=== PATIENT | male | born 1935 | race Caucasian/White ===

== ENCOUNTER 2025-02-11 09:28 | Inpatient (IN) ==
[2025-02-11] MEDS: MoRPHine SULFATE 4 MG/ML 1 ML CARP\\VIAL IV STA (10:08)
[2025-02-11] MEDS: ONDANSETRON INJ 2 MG/ML 2 ML VIAL IV STA (10:08)
--- NOTE | 2025-02-11 10:13 | Emergency Department Note ---
ED Provider Note History of Present Illness Chief Complaint: Knee Injury/Pain Stated Complaint: IN PAIN WITH HIS KNEES Time Seen by Provider: 02/11/25 09:34 89-year-old male who presents to the emergency department with family (who also provides history) with complaint of severe jumping nerve pain in both of his shoulders and knees. The patient and family report that this has been ongoing for quite some time. When asked what workup has been done to this point, they were unable to answer a question. They reported they were seen at a pain clinic where they supposedly burned nerves in his knees, which only made it worse. They supposedly did imaging of his knees as well. He does admit to history of arthritis. The patient has tried Tylenol without pain relief. He cannot take NSAIDs because of history of kidney disease. The patient rates his discomfort a 10 out of 10. Home Medications Medication Instructions Recorded Confirmed Type atorvastatin 40 mg tablet 40 mg PO HS #0 tabs 01/06/16 02/11/25 History lisinopril 20 mg tablet 20 mg PO QAM #0 tabs 01/06/16 02/11/25 History ropinirole 4 mg tablet 4 mg PO HS #0 tabs 01/06/16 02/11/25 History aspirin 81 mg tablet,delayed 81 mg PO QAM 02/11/25 02/11/25 History release cholecalciferol (vitamin D3) 50 50 mcg PO QAM 02/11/25 02/11/25 History mcg (2,000 unit) capsule duloxetine 30 mg capsule,delayed 60 mg PO QAM 02/11/25 02/11/25 History release famotidine 20 mg tablet 20 mg PO HS 02/11/25 02/11/25 History fluticasone fur. 100 mcg-umeclid 1 inh inhalation QAM 02/11/25 02/11/25 History 62.5 mcg-vilant 25 mcg inhalat.powder (Trelegy Ellipta) naproxen 500 mg tablet 500 mg PO BID 02/11/25 02/11/25 History pregabalin 150 mg capsule 150 mg PO TID 02/11/25 02/11/25 History Allergies Allergy/AdvReac Type Severity Reaction Status Date / Time No Known Allergies Allergy Unverified 12/17/19 10:07 Past Med/Surg History Problem List (Updated 08/08/25 @ 17:47 by Vishal Venegas) Positive Lyme disease serology (Acute) Hypoxemia (Acute) Acute hypotension (Acute) Osteoarthritis of both shoulders (Acute) Tricompartment osteoarthritis of both knees (Acute) Medical History (Updated 02/11/25 @ 17:47 by Vishal Venegas) Vision loss, right eye Hypertension Dyslipidemia Coronary artery disease COPD (chronic obstructive pulmonary disease) Surgical History (Updated 02/11/25 @ 11:13 by Vishal Venegas) Hx of cholecystectomy H/O hernia repair Social History (System 12/17/19 @ 10:07 by [place] Figuero[place]) Smoking Status: Never smoker Second Hand Exposure: Yes; Do You Dip or Chew Tobacco: No; Tobacco Cessation Education Requested by Patient: No Hx Alcohol Use: Yes Alcohol type: beer Hx Substance Use: No Preferred Language: Turkish Communication Ability: Effective Communication Ability Comment: dropped out of school in 2nd grade can read and write some [place] Required: No Beliefs That Will Affect Care: None Current Living Situation: Spouse Other Information That Helps Us Care for You: No Feels Safe at Home: Yes Safety Concerns: Feels Safe At This Time Assistive Devices: Cane and Glasses Physical Exam Vital Signs Vital Signs - 24 hr 02/11/25 09:29 02/11/25 10:09 02/11/25 10:15 Temperature 36.6 C Temperature Source Temporal Artery Scan Pulse Rate 92 H 88 Pulse Rate [Apical] Pulse Rate from SpO2 Sensor Respiratory Rate 16 Blood Pressure 117/67 104/71 Blood Pressure [Left Arm] Blood Pressure Mean 83 87 Blood Pressure Mean [Left Arm] Pulse Oximetry 92 Oxygen Delivery Method Oxygen Flow Rate Sepsis Recent Fever Within 48 Hours No Sepsis New/Unexplained Change in Mental Status N/A Sepsis Action Taken by Nursing No Action Required Oxygen Flow Rate - Titration Pulse Oximetry Post Tiitration 02/11/25 10:18 02/11/25 10:19 02/11/25 11:05 Temperature Temperature Source Pulse Rate 85 82 Pulse Rate [Apical] Pulse Rate from SpO2 Sensor 85 82 Respiratory Rate 13 18 Blood Pressure 53/33 L Blood Pressure [Left Arm] Blood Pressure Mean 37 Blood Pressure Mean [Left Arm] Pulse Oximetry 93 87 L 93 Oxygen Delivery Method Nasal Cannula Room Air Nasal Cannula Oxygen Flow Rate 2 2 Sepsis Recent Fever Within 48 Hours Sepsis New/Unexplained Change in Mental Status Sepsis Action Taken by Nursing Oxygen Flow Rate - Titration 2 Pulse Oximetry Post Tiitration 94 08/08/25 11:07 02/11/25 11:10 02/11/25 11:12 Temperature Temperature Source Pulse Rate 84 Pulse Rate [Apical] Pulse Rate from SpO2 Sensor 84 Respiratory Rate 19 Blood Pressure 69/51 L 80/61 L Blood Pressure [Left Arm] Blood Pressure Mean 56 68 Blood Pressure Mean [Left Arm] Pulse Oximetry 94 Oxygen Delivery Method Nasal Cannula Oxygen Flow Rate 2 Sepsis Recent Fever Within 48 Hours Sepsis New/Unexplained Change in Mental Status Sepsis Action Taken by Nursing Oxygen Flow Rate - Titration Pulse Oximetry Post Tiitration 02/11/25 11:15 02/11/25 11:18 02/11/25 11:20 Temperature Temperature Source Pulse Rate 78 Pulse Rate [Apical] Pulse Rate from SpO2 Sensor 78 Respiratory Rate 12 Blood Pressure 82/58 L 86/54 L Blood Pressure [Left Arm] Blood Pressure Mean 63 62 Blood Pressure Mean [Left Arm] Pulse Oximetry 94 Oxygen Delivery Method Nasal Cannula Oxygen Flow Rate 2 Sepsis Recent Fever Within 48 Hours Sepsis New/Unexplained Change in Mental Status Sepsis Action Taken by Nursing Oxygen Flow Rate - Titration Pulse Oximetry Post Tiitration 02/11/25 11:25 02/11/25 11:30 02/11/25 11:35 Temperature Temperature Source Pulse Rate 78 Pulse Rate [Apical] Pulse Rate from SpO2 Sensor 79 Respiratory Rate 13 Blood Pressure 85/52 L 85/51 L 92/55 L Blood Pressure [Left Arm] Blood Pressure Mean 57 62 61 Blood Pressure Mean [Left Arm] Pulse Oximetry 95 Oxygen Delivery Method Nasal Cannula Oxygen Flow Rate 2 Sepsis Recent Fever Within 48 Hours Sepsis New/Unexplained Change in Mental Status Sepsis Action Taken by Nursing Oxygen Flow Rate - Titration Pulse Oximetry Post Tiitration 02/11/25 11:39 02/11/25 11:40 02/11/25 11:42 Temperature Temperature Source Pulse Rate 78 78 Pulse Rate [Apical] Pulse Rate from SpO2 Sensor 78 78 Respiratory Rate 15 13 Blood Pressure 94/57 L Blood Pressure [Left Arm] Blood Pressure Mean 75 Blood Pressure Mean [Left Arm] Pulse Oximetry 95 95 Oxygen Delivery Method Nasal Cannula Nasal Cannula Oxygen Flow Rate 2 2 Sepsis Recent Fever Within 48 Hours Sepsis New/Unexplained Change in Mental Status Sepsis Action Taken by Nursing Oxygen Flow Rate - Titration Pulse Oximetry Post Tiitration 02/11/25 12:04 02/11/25 12:06 02/11/25 12:10 Temperature Temperature Source Pulse Rate 83 Pulse Rate [Apical] Pulse Rate from SpO2 Sensor 83 Respiratory Rate 13 Blood Pressure 103/67 93/73 L Blood Pressure [Left Arm] Blood Pressure Mean 71 79 Blood Pressure Mean [Left Arm] Pulse Oximetry 96 Oxygen Delivery Method Nasal Cannula Oxygen Flow Rate 2 Sepsis Recent Fever Within 48 Hours Sepsis New/Unexplained Change in Mental Status Sepsis Action Taken by Nursing Oxygen Flow Rate - Titration Pulse Oximetry Post Tiitration 02/11/25 12:16 02/11/25 12:16 02/11/25 12:20 Temperature Temperature Source Pulse Rate Pulse Rate [Apical] 82 Pulse Rate from SpO2 Sensor Respiratory Rate 16 Blood Pressure 104/78 Blood Pressure [Left Arm] 108/81 Blood Pressure Mean 87 Blood Pressure Mean [Left Arm] 90 Pulse Oximetry 95 Oxygen Delivery Method Room Air Oxygen Flow Rate Sepsis Recent Fever Within 48 Hours Sepsis New/Unexplained Change in Mental Status Sepsis Action Taken by Nursing Oxygen Flow Rate - Titration Pulse Oximetry Post Tiitration 02/11/25 12:21 02/11/25 12:25 02/11/25 12:30 Temperature Temperature Source Pulse Rate 83 80 Pulse Rate [Apical] Pulse Rate from SpO2 Sensor 84 80 Respiratory Rate 14 12 Blood Pressure 104/74 115/74 Blood Pressure [Left Arm] Blood Pressure Mean 90 87 Blood Pressure Mean [Left Arm] Pulse Oximetry 95 92 Oxygen Delivery Method Nasal Cannula Nasal Cannula Oxygen Flow Rate 2 2 Sepsis Recent Fever Within 48 Hours Sepsis New/Unexplained Change in Mental Status Sepsis Action Taken by Nursing Oxygen Flow Rate - Titration Pulse Oximetry Post Tiitration 02/11/25 12:33 02/11/25 12:35 02/11/25 12:45 Temperature Temperature Source Pulse Rate 82 80 Pulse Rate [Apical] Pulse Rate from SpO2 Sensor 81 79 Respiratory Rate 14 14 Blood Pressure 102/66 90/69 L Blood Pressure [Left Arm] Blood Pressure Mean 78 76 Blood Pressure Mean [Left Arm] Pulse Oximetry 93 92 Oxygen Delivery Method Nasal Cannula Nasal Cannula Oxygen Flow Rate 2 2 Sepsis Recent Fever Within 48 Hours Sepsis New/Unexplained Change in Mental Status Sepsis Action Taken by Nursing Oxygen Flow Rate - Titration Pulse Oximetry Post Tiitration CONSTITUTIONAL: Healthy and well nourished. Alert and oriented X 3. GCS 15. Patient appears in moderate to severe discomfort, frequently jumping while lying in bed from the pain. HEENT: Normocephalic, atraumatic. Pupils equal, round and reactive. No scleral icterus or conjunctival injection. NECK: Full active range of motion without discomfort. No JVD or carotid bruits. LYMPHATICS: No cervical chain adenopathy. RESPIRATORY: Clear to auscultation bilaterally with no wheezing, crackles, rhonchi or stridor. CARDIOVASCULAR: Regular rate and rhythm with no murmurs, rubs or gallops. GASTROINTESTINAL: Bowel sounds present in all quadrants. Abdomen is soft and nontender to palpation. MUSCULOSKELETAL: Examination shows notable joint effusions of bilateral knees. No overriding erythema or increased warmth to palpation. No popliteal masses bilaterally. Range of motion does cause mild discomfort. Examination also shows notable edema over the left acromioclavicular joint, none on the right shoulder. Patient also has mild discomfort with range of motion of the shoulders as well. Distal pulses are intact. INTEGUMENTARY: No rash or other significant dermatologic conditions noted. HEMATOLOGIC: No ecchymosis or petechiae. PSYCHIATRIC: Positive affect. NEUROLOGIC: Cranial nerves II-XII grossly intact. No focal neurologic deficits noted. Course Course Patient history and physical exam were performed. Nursing notes were reviewed. Vital signs were reviewed and were normal. Labs and imaging studies were ordered. The patient was administered IV morphine and Zofran for pain relief. While awaiting additional workup, attempts at finding the patient's outside [facility] medical records were initially unsuccessful. After confirming the patient's name twice with the family, we determined that there was a spelling issue with his name. This was corrected, and Case Management was able to find the patient's case for medical records. It appears that the patient has been following with the [facility] spine and pain management office. He has had radiofrequency ablations of the bilateral knees, as well as Euflexxa viscosupplementation without relief. On his last visit to their office on 12/16/2024, it is noted that his pain relief from the previous injections were only briefly lived. It does not appear that any additional treatment options have been outlined in his medical records. Further review of records shows that the patient also has had follow-up for his shoulders as well in 2022 and 2023. I also queried the [place] Drug Monitoring Prescription Program, showing that the patient receives regular prescriptions for pregabalin, as well as sparse prior prescriptions for tramadol and oxycodone. No other concerning red flags are appreciated. The patient did require additional pain medication, and was ordered IV Dilaudid. Review of labs shows a normal CBC. Patient is mildly anemic with a hemoglobin and hematocrit of 13.3 and 39.5, respectively. Patient is also mildly thrombocytopenic with a platelet count of 124,000. Coag studies are normal. CMP shows creatinine of 1.53. Uric acid is also elevated at 9.0. Sed rate, procalcitonin and lactate are all normal. Anaplasma and Babesia smears are negative, with additional PCR testing pending. It is noted with IV analgesics to control the patient's pain, he did become hypoxic and hypotensive. The patient was administered a liter normal saline bolus, and was placed on O2 via nasal cannula to maintain O2 saturations in the mid 90s. It is also noted that he has a history of COPD as well. The case was discussed with Dr. Spears, ED attending physician, who did not suspect that his presentation was consistent with gout or septic joint. He also agreed with admission given his hypotension and hypoxia. With positive Lyme screens, the patient will be administered IV Rocephin. Trial ambulation was a challenge with the patient being unsteady on his feet. I did discuss with the family possibility of observation, and they were in agreement. The case was then discussed with the [facility] service. Please see their dictations for further treatment and final disposition. Nothing After the patient was admitted, review of a second tier Lyme test shows a positive IgG and negative IgM, consistent with current or prior infection. Administered Medications Acetaminophen (Acetaminophen 500 Mg Tab) 1,000 mg PO Q8H [facility] Stop: 03/13/25 15:04 Last Admin: 02/11/25 15:16 Dose: 1,000 mg Documented By: AMBER Sodium Chloride (Nss) 1,000 mls @ 125 mls/hr IV .Q8H [facility] Stop: 02/11/25 21:29 Last Admin: 02/11/25 14:07 Dose: 125 mls/hr Documented By: EFREN Methylprednisolone (Methylprednisolone 4 Mg Tab) 8 mg PO [facility] Stop: 02/11/25 21:16 Last Admin: 02/11/25 16:28 Dose: 8 mg Documented By: KAYLA Methylprednisolone (Methylprednisolone 4 Mg Tab) 4 mg PO [facility] Stop: 02/11/25 21:16 Last Admin: 02/11/25 16:28 Dose: 4 mg Documented By: KAYLA Ondansetron HCl (Ondansetron Inj 2 Mg/Ml 2 Ml Vial) 4 mg IV Q6H PRN PRN Reason: Nausea Stop: 03/13/25 15:04 Last Admin: 02/11/25 15:21 Dose: 4 mg Documented By: KAYLA Pregabalin (Pregabalin 150 Mg Cap) 150 mg PO TID [facility] Stop: 03/13/25 15:04 Last Admin: 02/11/25 15:16 Dose: 150 mg Documented By: AMBER Discontinued Medications Dexamethasone (Dexamethasone Sod Inj 4 Mg/Ml Vial) 6 mg IV NOW STA Stop: 02/11/25 13:45 Last Admin: 02/11/25 14:06 Dose: 6 mg Documented By: EFREN Hydromorphone HCl (Hydromorphone Inj 0.5 Mg/0.5 Ml Syr) 0.5 mg IV NOW STA Stop: 02/11/25 10:56 Last Admin: 02/11/25 10:59 Dose: 0.5 mg Documented By: RUBIN Sodium Chloride (Nss) 1,000 mls @ 999 mls/hr IV .Q1H1M ONE Stop: 02/11/25 12:19 Last Infusion: 02/11/25 12:48 Dose: Infused Documented By: Admin: 02/11/25 11:26 Dose: 999 mls/hr Documented By: RUBIN Ceftriaxone Sodium (Rocephin) 2,000 mg in 50 mls @ 100 mls/hr IV NOW STA Stop: 02/11/25 12:48 Last Infusion: 02/11/25 13:38 Dose: Infused Documented By: Admin: 02/11/25 12:56 Dose: 100 mls/hr Documented By: RUBIN Morphine Sulfate (Morphine Sulfate 4 Mg/Ml 1 Ml Carp\Vial) 4 mg IV NOW STA Stop: 02/11/25 09:49 Last Admin: 02/11/25 10:08 Dose: 4 mg Documented By: RUBIN Ondansetron HCl (Ondansetron Inj 2 Mg/Ml 2 Ml Vial) 4 mg IV NOW STA Stop: 02/11/25 09:49 Last Admin: 02/11/25 10:08 Dose: 4 mg Documented By: RUBIN Medical Decision Making Medical Records Attestation: I reviewed the patient's medical records. Home Medications was personally reviewed by me Laboratory Data Attestation: I reviewed the patient's lab results. 02/11/25 10:05 02/11/25 10:05 Lab Results 02/11/25 Range/Units 10:05 WBC 8.51 (4.8-10.8) K/ul RBC 4.11 L (4.70-6.10) M/uL Hgb 13.3 L (14.0-18.0) g/dl Hct 39.5 L (42.0-52.0) % MCV 96.1 (80.0-100.0) fL MCH 32.4 (25.0-34.0) pg MCHC 33.7 (32.0-36.0) g/dL RDW Std Deviation 44.1 (36.4-46.3) fL RDW Coeff of Liseth 12.5 (11.5-14.5) % Plt Count 124 L (130-400) K/uL MPV 12.3 (9.4-12.4) fL Immature Gran % (Auto) 0.6 % Neut % (Auto) 68.5 % Lymph % (Auto) 16.0 % [place] % (Auto) 12.0 % Eos % (Auto) 2.4 % Baso % (Auto) 0.5 % Neut # (Auto) 5.84 (1.40-6.50) K/uL Lymph # (Auto) 1.36 (1.20-3.40) K/uL [place] # (Auto) 1.02 H (0.11-0.59) K/uL Eos # (Auto) 0.20 (0.00-0.50) K/uL Baso # (Auto) 0.04 (0.00-0.20) K/uL Immature Gran # (Auto) 0.05 (0.01-0.20) K/uL ESR 6 (0-20) mm/hr PT 11.0 (9.0-12.0) Seconds INR 1.0 (0.9-1.1) Sodium 141 (136-145) mmol/L Potassium 4.4 (3.5-5.1) mmol/L Chloride 108 H (98-107) mmol/L Carbon Dioxide 24 (21-32) mmol/L Anion Gap 9 (3-11) BUN 46 H (6-23) mg/dl Creatinine 1.53 H (0.6-1.4) mg/dl Est Cr Clr Drug Dosing 32.6 ml/min eGFR 43.73 BUN/Creatinine Ratio 30.1 H (10-20) Glucose 99 (70-99(Fasting)) mg/dl Lactate 1.2 (0.4-2.0) mmol/L Uric Acid 9.0 H (2.6-7.2) mg/dl Calcium 9.6 (8.6-10.3) mg/dl Total Bilirubin 0.6 (0.2-1.0) mg/dl AST 30 (13-39) U/L ALT 21 (7-52) U/L Alkaline Phosphatase 77 (34-104) U/L C-Reactive Protein < 0.50 (0-0.5) mg/dl Total Protein 6.9 (6.0-8.3) gm/dl Albumin 4.4 (3.4-5.0) gm/dl Globulin 2.5 (2.5-4.0) gm/dl Albumin/Globulin Ratio 1.8 (0.9-2) Procalcitonin 0.06 (0-0.5) ng/ml Anaplasma Smear See Comment Babesia Smear See Comment Lyme Disease Screen Positive H (Negative) Lyme Tier 2 IgG Confirm Positive H (Negative) Lyme Tier 2 IgM Confirm Negative (Negative) Imaging Data Attestation: I personally reviewed and interpreted this imaging study as follows: My Impression: My interpretation of a portable chest x-ray does not show evidence for pneumonia, pneumothorax or failure pattern. Mild cardiomegaly is noted. My interpretation of bilateral knee x-ray shows severe tricompartmental osteoarthritis. No fractures or dislocations noted. Bilateral joint effusions are noted. My interpretation of bilateral shoulder x-rays also shows significant degenerative changes without fractures or dislocations. Radiologist reports were also reviewed with concurrence. Radiologist's Impression: Chest X-Ray 02/11/25 09:48 XR chest 1V portable CLINICAL HISTORY: Arthgralgias COMPARISON STUDY: 01/06/2016 FINDINGS: Stable CABG. There is mild cardiomegaly without pulmonary vascular congestion. No consolidation or pleural effusion. No pneumothorax. IMPRESSION: No acute findings. ACT 112: Negative or not required by law. Electronically signed by: Zak Donnelly M.D. 02/11/2025 10:35 AM Knee X-Ray 02/11/25 09:48 XR knee RT 1 or 2V routine CLINICAL HISTORY: Bilat knee pain COMPARISON: None FINDINGS: There is moderate osteoarthritis. There are atherosclerotic calcifications. There is a moderate joint effusion. No fracture or dislocation seen. IMPRESSION: No fracture seen. ACT 112: Negative or not required by law. Electronically signed by: Zak Donnelly M.D. 02/11/2025 10:36 AM Knee X-Ray 02/11/25 09:48 XR knee LT 1 or 2V routine CLINICAL HISTORY: Bilat knee pain COMPARISON: None FINDINGS: There is moderate osteoarthritis. There are atherosclerotic calcifications. There is a moderate joint effusion. No fracture or dislocation seen. IMPRESSION: No fracture seen. ACT 112: Negative or not required by law. Electronically signed by: Zak Donnelly M.D. 02/11/2025 10:37 AM Shoulder X-Ray 02/11/25 09:48 XR shoulder LT min 2V routine CLINICAL HISTORY: Bilat shoulder pain COMPARISON: None FINDINGS: There are moderate degenerative changes. No acute fracture or dislocation. IMPRESSION: No fracture seen. ACT 112: Negative or not required by law. Electronically signed by: Zak Donnelly M.D. 02/11/2025 10:36 AM Shoulder X-Ray 02/11/25 09:48 XR shoulder RT min 2V routine CLINICAL HISTORY: Bilat shoulder pain COMPARISON: None FINDINGS: There are moderate degenerative changes. No fracture or dislocation seen. IMPRESSION: No fracture seen. ACT 112: Negative or not required by law. Electronically signed by: Zak Donnelly M.D. 02/11/2025 10:37 AM Prescription Drug Monitoring [place] Drug Monitoring Program reviewed and no issues identified (Patient has occasional prescriptions for tramadol and Oxy IR 5 mg, otherwise no other concerning red flags.) MDM Narrative See ED Course section for further details of today's visit. The patient presents to the emergency department with complaint of severe bilateral knee and shoulder pain. Review of medical record shows that the patient has seen orthopedics in the past for his knees, and has undergone viscosupplementation and RFA nerve blocks without success. It appears that the patient is not medically stable for joint replacements. The daughters reports that they have tried other opioids in the past, however were concerned about possible opioid overuse. Patient presented with severe pain, and was administered IV analgesics which unfortunately caused some mild transient hypoxemia and hypotension. Patient does have a positive Lyme screen, therefore I do have suspicion for possible Lyme arthritis. The patient was administered IV Rocephin. His examination does not show evidence for gout or septic joint, although he does have an elevated uric acid level. The patient does have a history of gout. The patient's medication list does not show that he is on any type of gout suppression. Given his intractable pain and resulting hypotension/hypoxemia from pain management today, the case was discussed with the [facility] service for admission. Impression Tricompartment osteoarthritis of both knees, Osteoarthritis of both shoulders, Acute hypotension, Hypoxemia, Positive Lyme disease serology Discharge Plan Visit Data Chief Complaint: Knee Injury/Pain Stated Complaint: IN PAIN WITH HIS KNEES ED Provider: Jamar Cabrera ED Midlevel Provider: Vishal Venegas Discharge Problem: Tricompartment osteoarthritis of both knees, Osteoarthritis of both shoulders, Acute hypotension, Hypoxemia, Positive Lyme disease serology Patient Disposition: Admitted As Inpatient Condition: Fair Discharge Instructions Interventions: ED Discharge Assessment Last Done: 02/11/25 14:30 ED DC CONDITION Conditon at Discharge Condition at Discharge: Fair Discharge Problem: Osteoarthritis of both shoulders Qualifiers: Osteoarthritis type: primary Qualified Code(s): M19.011 - Primary osteoarthritis, right shoulder
[2025-02-11 10:29] LABS: Hematocrit (blood only) 39.5 % (42.0-52.0); Hemoglobin 13.3 g/dl (14.0-18.0); Immature Granulocytes # (auto) 0.05 K/uL (0.01-0.20); Immature Granulocytes % (auto) 0.6 %; Mean Corpuscular Hemoglobin 32.4 pg (25.0-34.0); Mean Corpuscular Volume 96.1 fL (80.0-100.0); Platelet Count 124 K/uL (130-400); RDW Standard Deviation 44.1 fL (36.4-46.3); Red Blood Count 4.11 M/uL (4.70-6.10); White Blood Count 8.51 K/ul (4.8-10.8)
--- NOTE | 2025-02-11 10:36 | XRay Report ---
XR chest 1V portable CLINICAL HISTORY: Arthgralgias COMPARISON STUDY: 01/06/2016 FINDINGS: Stable CABG. There is mild cardiomegaly without pulmonary vascular congestion. No consolida tion or pleural effusion. No pneumothorax. IMPRESSION: No acute findings. ACT 112: Negative or not required by law. Electronically signed by: Zak Donnelly M.D. 02/11/2025 10:35 AM
--- NOTE | 2025-02-11 10:37 | XRay Report ---
XR knee RT 1 or 2V routine CLINICAL HISTORY: Bilat knee pain COMPARISON: None FINDINGS: There is moderate osteoarthritis. There are atherosclerotic calcifications. There is a mod erate joint effusion. No fracture or dislocation seen. IMPRESSION: No fracture seen. ACT 112: Negative or not required by law. Electronically signed by: Zak Donnelly M.D. 02/11/2025 10:36 AM
--- NOTE | 2025-02-11 10:38 | XRay Report ---
XR shoulder LT min 2V routine CLINICAL HISTORY: Bilat shoulder pain COMPARISON: None FINDINGS: There are moderate degenerative changes. No acute fracture or dislocation. IMPRESSION: No fracture seen. ACT 112: Negative or not required by law. Electronically signed by: Zak Donnelly M.D. 02/11/2025 10:36 AM
--- NOTE | 2025-02-11 10:38 | XRay Report ---
XR shoulder RT min 2V routine CLINICAL HISTORY: Bilat shoulder pain COMPARISON: None FINDINGS: There are moderate degenerative changes. No fracture or dislocation seen. IMPRESSION: No fracture seen. ACT 112: Negative or not required by law. Electronically signed by: Zak Donnelly M.D. 02/11/2025 10:37 AM
--- NOTE | 2025-02-11 10:38 | XRay Report ---
XR knee LT 1 or 2V routine CLINICAL HISTORY: Bilat knee pain COMPARISON: None FINDINGS: There is moderate osteoarthritis. There are atherosclerotic calcifications. There is a mod erate joint effusion. No fracture or dislocation seen. IMPRESSION: No fracture seen. ACT 112: Negative or not required by law. Electronically signed by: Zak Donnelly M.D. 02/11/2025 10:37 AM
[2025-02-11 10:48] LABS: Alanine Aminotransferase 21 U/L (7-52); Albumin Globulin Ratio 1.8 (0.9-2); Alkaline Phosphatase 77 U/L (34-104); Anion Gap 9 (3-11); Bilirubin,Total 0.6 mg/dl (0.2-1.0); Blood Urea Nitrogen 46 mg/dl (6-23); Calcium 9.6 mg/dl (8.6-10.3); Carbon Dioxide 24 mmol/L (21-32); Chloride 108 mmol/L (98-107); Creatinine Clr Calc Pharmacy 32.6 ml/min; Globulin 2.5 gm/dl (2.5-4.0); Glucose 99 mg/dl (70-99(Fasting)); Potassium 4.4 mmol/L (3.5-5.1); Sodium 141 mmol/L (136-145); Total Protein 6.9 gm/dl (6.0-8.3); Uric Acid 9.0 mg/dl (2.6-7.2)
[2025-02-11 10:51] LABS: Procalcitonin 0.06 ng/ml (0-0.5)
[2025-02-11] MEDS: HYDROmorphone INJ 0.5 MG/0.5 ML SYR IV STA (10:59)
[2025-02-11 11:04] LABS: INR 1.0 (0.9-1.1); Prothrombin Time 11.0 Seconds (9.0-12.0)
[2025-02-11 11:16] LABS: Lyme Screen Rflx Confirmation Positive (Negative)
[2025-02-11] MEDS: SODIUM CHLORIDE 0.9% 1,000 ML IV ONE (11:26)
[2025-02-11 11:59] LABS: Lyme Ab IgG 2nd Tier Confirm Positive (Negative); Lyme Ab IgM 2nd Tier Confirm Negative (Negative)
--- NOTE | 2025-02-11 12:53 | History & Physical Report ---
Date of Service February 11, 2025 Assessment & Plan (1) Bilateral knee pain: (2) Positive Lyme disease serology: (3) Hypoxemia: (4) Acute hypotension: (5) Osteoarthritis: Plan: Patient is 89 year old male with PMH HTN, dyslipidemia, CAD s/p CABG in 1999, COPD, GERD, anxiety, depression, carotid stenosis, RLS, OA, presented to ER with c/o bilateral knee pain and bilateral shoulder pain uncontrolled with prior outpatient treatments by ortho and pain management. In ER patient was given 4 mg of morphine and reported continued pain was given additional 0.5 mg Dilaudid IV with resultant severe hypotension and hypoxia. Patient was given 1 L NSS with BP improving to 104/73. Patient is very somnolent. Uric acid: 9.0, per outpt chart review uric acid 7.6 on 11/11/21 Lyme screen positive. Lyme IgM negative, Lyme IgG positive anaplasma and babesia smear unremarkable. babesia PCR, anaplasma PCR pending Hold home lisinopril with soft BPs Dexamethasone IV now Start Medrol Dosepak In ER given Rocephin. Will start doxycycline Holding narcotics at this time until prior given narcotics wears off. If more somnolent or respiratory issues plan for Narcan Continue home ropinirole, Lyrica Ortho consult #SILVIA on CKD III BUN: 46, Cr: 1.5. Cr was 1.1 on 01/06/25 and 2.5 on 12/09/24. Prior baseline 1.2. Hold NSAIDs Gentle IVF Monitor renal functions #Hypoxia #History COPD likely iso opioid stacking in ED Continue home inhalers Supplemental oxygen as needed, wean when able Consider possible underlying ZOHAIB. May need formal study or night pulse ox study Nebs as needed #CAD #HTN #Dyslipidemia H/O CABG 1999 Continue aspirin and statin hold lisinopril DVT Prophylaxis SCD for now Admit telemetry DNR/DNI as per discussion with pt's at bedside Follows with Olya Figueroa PA-C for routine care Pt was seen and care coordinated with Dr Saravia. See addendum I spent a total of 70 minutes reviewing notes, outpatient records, labs, medication, coordinating, documenting and providing care for this patient excluding time spent in the performance of separately billed services and excluding time spent by another provider/QHP. History of Present Illness Chief Complaint: Joint pain Primary Care Provider: Olya Figueroa PA-C Patient is 89 year old male with PMH HTN, dyslipidemia, CAD s/p CABG in 1999, COPD, GERD, anxiety, depression, carotid stenosis, RLS, OA, presented to ER with c/o bilateral knee pain and bilateral shoulder pain. History obtained from patient at bedside and outpatient chart review as patient currently somnolent after receiving IV narcotics in ER. Per outpatient chart review patient with chronic bilateral knee pain left greater than right. Prior x-rays consistent with advanced bilateral osteoarthritis, predominantly affecting medial compartments. Patient has followed with Dr Sarah pain management in [place] and had limited relief with radiofrequency ablation and Euflexxa injections and has also been seen by ortho. Also with bilateral shoulder pain ongoing for years. reports patient's knee pain is uncontrolled. She reports chronic edema of knees. Unsure if has had erythema. reports previously on pain medication but was tapered off "awhile ago". She is unaware of any tick bites. No prior history Lyme disease. Denies fever/chills, N/V/D/C, reported CP or SOB. Further ROS unobtaianable at this time secondary to patients status. Outpatient 09/21/24 bilateral knee xray: 1. No acute bilateral knee osseous finding. 2. [id number] bilateral medial compartment degenerative changes. 3. Given the bilateral patella femoral joint space narrowing, sclerosis, scattered chondrocalcinosis, a component of chronic CPPD arthropathy is not excluded. Allergies Allergy/AdvReac Type Severity Reaction Status Date / Time No Known Allergies Allergy Unverified 12/17/19 10:07 Home Medications Medication Instructions Recorded Confirmed Type atorvastatin 40 mg tablet 40 mg PO HS #0 tabs 01/06/16 02/11/25 History lisinopril 20 mg tablet 20 mg PO QAM #0 tabs 01/06/16 02/11/25 History ropinirole 4 mg tablet 4 mg PO HS #0 tabs 01/06/16 02/11/25 History aspirin 81 mg tablet,delayed 81 mg PO QAM 02/11/25 02/11/25 History release cholecalciferol (vitamin D3) 50 50 mcg PO QAM 02/11/25 02/11/25 History mcg (2,000 unit) capsule duloxetine 30 mg capsule,delayed 60 mg PO QAM 02/11/25 02/11/25 History release famotidine 20 mg tablet 20 mg PO HS 02/11/25 02/11/25 History fluticasone fur. 100 mcg-umeclid 1 inh inhalation QAM 02/11/25 02/11/25 History 62.5 mcg-vilant 25 mcg inhalat.powder (Trelegy Ellipta) naproxen 500 mg tablet 500 mg PO BID 02/11/25 02/11/25 History pregabalin 150 mg capsule 150 mg PO TID 02/11/25 02/11/25 History Past Med/Surg History Problem List (Updated 02/11/25 @ 21:55 by Charlene Stoner PA-C) Osteoarthritis Bilateral knee pain Positive Lyme disease serology (Acute) Hypoxemia (Acute) Acute hypotension (Acute) Osteoarthritis of both shoulders (Acute) Tricompartment osteoarthritis of both knees (Acute) Medical History Vision loss, right eye Hypertension Dyslipidemia Coronary artery disease COPD (chronic obstructive pulmonary disease) Surgical History Hx of cholecystectomy H/O hernia repair Social History Smoking Status: Never smoker Second Hand Exposure: Yes; Do You Dip or Chew Tobacco: No; Tobacco Cessation Education Requested by Patient: No Hx Alcohol Use: Yes Alcohol type: beer Hx Substance Use: No Preferred Language: Occitan Communication Ability: Effective Communication Ability Comment: dropped out of school in 2nd grade can read and write some Galvanizing Pot Runner Required: No Beliefs That Will Affect Care: None Current Living Situation: Spouse Other Information That Helps Us Care for You: No Feels Safe at Home: Yes Safety Concerns: Feels Safe At This Time Assistive Devices: Cane and Glasses Review of Systems Review of Systems: Unobtainable due to reduced consciousness Physical Exam Physical Exam: PE per Dr Saravia Results & Data Results & Data Vital Signs (Past 12 Hours) Vital Signs Temp Pulse Pulse Resp BP BP Pulse Ox 02/11/25 12:16 82 16 108/81 95 02/11/25 12:16 02/11/25 11:42 78 13 95 02/11/25 11:40 94/57 L 02/11/25 11:39 78 15 95 02/11/25 11:35 92/55 L 02/11/25 11:30 78 13 85/51 L 95 02/11/25 11:25 85/52 L 02/11/25 11:20 86/54 L 02/11/25 11:18 78 12 94 02/11/25 11:15 82/58 L 02/11/25 11:12 84 19 94 02/11/25 11:10 80/61 L 02/11/25 11:07 69/51 L 02/11/25 11:05 82 18 53/33 L 93 02/11/25 10:19 87 L 02/11/25 10:18 85 13 93 02/11/25 10:15 104/71 02/11/25 10:09 88 02/11/25 09:29 36.6 C 92 H 16 117/67 92 O2 Del Method O2 Flow Rate 02/11/25 12:16 02/11/25 12:16 Room Air 02/11/25 11:42 Nasal Cannula 2 02/11/25 11:40 02/11/25 11:39 Nasal Cannula 2 02/11/25 11:35 02/11/25 11:30 Nasal Cannula 2 02/11/25 11:25 02/11/25 11:20 02/11/25 11:18 Nasal Cannula 2 02/11/25 11:15 02/11/25 11:12 Nasal Cannula 2 02/11/25 11:10 02/11/25 11:07 02/11/25 11:05 Nasal Cannula 2 02/11/25 10:19 Room Air 02/11/25 10:18 Nasal Cannula 2 02/11/25 10:15 02/11/25 10:09 02/11/25 09:29 Laboratory Results Short CBC 02/11/25 Range/Units 10:05 WBC 8.51 (4.8-10.8) K/ul Hgb 13.3 L (14.0-18.0) g/dl Hct 39.5 L (42.0-52.0) % Plt Count 124 L (130-400) K/uL BMP 02/11/25 10:05 Sodium 141 Potassium 4.4 Chloride 108 H Carbon Dioxide 24 BUN 46 H Creatinine 1.53 H Glucose 99 Calcium 9.6 Liver Function 02/11/25 Range/Units 10:05 Total Bilirubin 0.6 (0.2-1.0) mg/dl AST 30 (13-39) U/L ALT 21 (7-52) U/L Alkaline Phosphatase 77 (34-104) U/L Albumin 4.4 (3.4-5.0) gm/dl Diagnostic Findings Chest X-Ray 02/11/25 09:48 XR chest 1V portable CLINICAL HISTORY: Arthgralgias COMPARISON STUDY: 01/06/2016 FINDINGS: Stable CABG. There is mild cardiomegaly without pulmonary vascular congestion. No consolidation or pleural effusion. No pneumothorax. IMPRESSION: No acute findings. ACT 112: Negative or not required by law. Electronically signed by: Zak Donnelly M.D. 02/11/2025 10:35 AM Knee X-Ray 02/11/25 09:48 XR knee RT 1 or 2V routine CLINICAL HISTORY: Bilat knee pain COMPARISON: None FINDINGS: There is moderate osteoarthritis. There are atherosclerotic calcifications. There is a moderate joint effusion. No fracture or dislocation seen. IMPRESSION: No fracture seen. ACT 112: Negative or not required by law. Electronically signed by: Zak Donnelly M.D. 02/11/2025 10:36 AM Knee X-Ray 02/11/25 09:48 XR knee LT 1 or 2V routine CLINICAL HISTORY: Bilat knee pain COMPARISON: None FINDINGS: There is moderate osteoarthritis. There are atherosclerotic calcifications. There is a moderate joint effusion. No fracture or dislocation seen. IMPRESSION: No fracture seen. ACT 112: Negative or not required by law. Electronically signed by: Zak Donnelly M.D. 02/11/2025 10:37 AM Shoulder X-Ray 02/11/25 09:48 XR shoulder LT min 2V routine CLINICAL HISTORY: Bilat shoulder pain COMPARISON: None FINDINGS: There are moderate degenerative changes. No acute fracture or dislocation. IMPRESSION: No fracture seen. ACT 112: Negative or not required by law. Electronically signed by: Zak Donnelly M.D. 02/11/2025 10:36 AM Shoulder X-Ray 02/11/25 09:48 XR shoulder RT min 2V routine CLINICAL HISTORY: Bilat shoulder pain COMPARISON: None FINDINGS: There are moderate degenerative changes. No fracture or dislocation seen. IMPRESSION: No fracture seen. ACT 112: Negative or not required by law. Electronically signed by: Zak Donnelly M.D. 02/11/2025 10:37 AM Supervising Physician Co-Signing Physician Notes I have seen and discussed the case with the collaborating advanced practitioner. I agree with the above H&P. I have reviewed and confirmed the patients medical history, the findings on physical examination, and the patients diagnosis and treatment plan with Herbie LAO and agree with the information documented. In short, is an 89 yo gentleman with chronic knee pain who reports acute worsening in the last 24 hours. Patient was given a notable amount of IV analgesia therefore hx gathered by and daughter at bedside Patient has dealt with pain for years, however, last evening the pain was so severe he was unable to sleep. No reports of direct injury or other traumatic concerns. No reports of fevers, chills, changes in bowels, urinary habits. Patient does work outside often. He ambulates with a cane. GENERAL APPEARANCE: AxOx0, requires physical and loud verbal stimuli to awaken HEENT: NC, AT. MMM. left eye with clouding (chronic) right eye with PERRLA, sluggish NECK: Supple without lymphadenopathy. No stiffness or restricted ROM. HEART: Normal rate and regular rhythm, normal S1/S1, no m/r/g LUNGS: CTAB, moving air well. No crackles or wheezes are heard. ABDOMEN: Soft, nondistended with good bowel sounds heard. EXTREMITIES: Without cyanosis, clubbing or edema. Right knee with more medial swelling than left, no warm erythema noted, no lesions noted. NEUROLOGICAL: Grossly nonfocal. moving all 4 extremities. CN not formally tested but appear grossly intact. well lethargic 2/2 analgesia Skin: Warm and dry without any rash. #Lyme positive #Thrombocytopenia #Acute on chronic knee pain, R> L #Severe bilatral knee OA and chondrocalcinosis patient hasnt seen pain mgmt since 2023 s/p euflexxa infections, genicular block, previous on suboxone and lyrica follows ortho, last injection 11/09 of euflexxa continue lyrica and ropinirole prior lyme in 2021 negative will treat with doxycycline bid for now trend cbc ortho consult hold on further opioids at this time will trial dose of steroid, consider medrol dose pack in am #SILVIA on CKD II baseline appears to be 1.2 with GFR in 60s Cr. 1.53 with elevated bun gentle IVF trend BMP avoid nephrotoxic agents #CABG 1999 #HTN continue asa and statin hold lisinopril #Hypoxia #COPD likely iso opioid stacking in ED continue trelegy wean o2 as able would consider overnight pulse ox as suspect underlying zohaib I spent a total of 35 minutes coordinating, documenting, and providing care for this patient excluding time spent in the performance of separately billed services. All of the aforementioned completed outside of collaborating with the assigned advanced practitioner for a full treatment plan. I have reviewed the advanced practitioner's documentation, and I agree with, and take responsibility for the plan of care
[2025-02-11] MEDS: cefTRIAXone SODIUM 2,000 MG/50 ML BAG IV STA (12:56)
[2025-02-11] MEDS: DEXAMETHASONE SOD INJ 4 MG/ML VIAL IV STA (14:06)
[2025-02-11] MEDS: SODIUM CHLORIDE 0.9% 1,000 ML IV SCH (14:07)
[2025-02-11] MEDS ORDERED: methylPREDNISolone 4 MG TAB, 6 DAY TAPER PO SCH (15:05)
[2025-02-11] MEDS ORDERED: MAGNESIUM HYDROXIDE SUSP 30 ML UDC PO PRN (15:05)
[2025-02-11] MEDS ORDERED: NALOXONE HCL 0.4 MG/1 ML VIAL/CARP IV PRN (15:05)
[2025-02-11] MEDS ORDERED: POLYETHYLENE (MIRALAX) 17 GM PACK PO PRN (15:05)
[2025-02-11] MEDS: ACETAMINOPHEN 500 MG TAB PO SCH (15:16)
[2025-02-11] MEDS: PREGABALIN 150 MG CAP PO SCH (15:16)
[2025-02-11] MEDS: ONDANSETRON INJ 2 MG/ML 2 ML VIAL IV PRN (15:21)
--- NOTE | 2025-02-11 15:24 | Electrocardiogram Report ---
Test Reason : Blood Pressure : */* mmHG Vent. Rate : 83 BPM Atrial Rate : 83 BPM P-R Int : 220 ms QRS Dur : 78 ms QT Int : 354 ms P-R-T Axes : 57 -5 9 degrees QTcB Int : 415 ms Poor data quality, interpretation may be adversely affected Sinus rhythm with 1st degree A-V block Otherwise normal ECG When compared with ECG of 06-Jan-2016 15:50, MO interval has increased Non-specific change in ST segment in Lateral leads Nonspecific T wave abnormality now evident in Inferior leads Confirmed by Brandon Haley ([id number]) on 02/11/2025 3:23:36 PM Referred By: REFERRED SELF Confirmed By: Brandon Haley
[2025-02-11] MEDS: methylPREDNISolone 4 MG TAB PO SCH ×2 (16:28)
--- NOTE | 2025-02-11 18:07 | Orthopedic Consultation ---
Date of Consultation February 11, 2025 Assessment & Plan (1) Positive Lyme disease serology: (2) Tricompartment osteoarthritis of both knees: Lyme + with chronic osteoarthritis, no evidence of acute septic arthritis no surgery indicated Recommend medical treatment WBAT with walker and max assist as he is high risk for falls Follow-up with his local ortho doctor History of Present Illness Attending Physician: Felicita Saravia MD History of Present Illness Patient is 89 year old male with PMH HTN, dyslipidemia, CAD s/p CABG in 1999, COPD, GERD, anxiety, depression, carotid stenosis, RLS, OA, presented to ER with c/o bilateral knee pain and bilateral shoulder pain. Per outpatient chart review patient with chronic bilateral knee pain left greater than right x-rays consistent with advanced bilateral osteoarthritis, predominantly affecting medial compartments. Patient has followed with Dr Sarah pain management in [place] and had limited relief with radiofrequency ablation and Euflexxa injections Also with bilateral shoulder pain Outpatient 09/21/24 bilateral knee xray: 1. No acute bilateral knee osseous finding. 2. Skhb-hz-aghl bilateral medial compartment degenerative changes. 3. Given the bilateral patella femoral joint space narrowing, sclerosis, scattered chondrocalcinosis, a component of chronic CPPD arthropathy is not excluded. Uric acid: 9.0, per outpt chart review uric acid 7.6 on 11/11/21 Lyme screen positive. Lyme IgM negative, Lyme IgG positive anaplasma and babesia smear unremarkable. babesia PCR, anaplasma PCR pending BUN: 46, Cr: 1.5. Cr was 1.1 on 01/06/25 and 2.5 on 12/09/24. Prior baseline 1.2. In ER patient was given 4 mg of morphine and reported continued pain was given additional 0.5 mg Dilaudid IV with resultant severe hypotension and hypoxia. Patient was given 1 L NSS with BP improving to 104/73. Patient is very somnolent. Orthopaedics consulted for evaluation of knee pain. Patient seen and examined on the floor. Difficult to obtain history from the patient as he is hard of hearing and sleepy, does not clearly answer questions. Allergies Allergy/AdvReac Type Severity Reaction Status Date / Time No Known Allergies Allergy Unverified 12/17/19 10:07 Home Medications Medication Instructions Recorded Confirmed Type atorvastatin 40 mg tablet 40 mg PO HS #0 tabs 01/06/16 02/11/25 History lisinopril 20 mg tablet 20 mg PO QAM #0 tabs 01/06/16 02/11/25 History ropinirole 4 mg tablet 4 mg PO HS #0 tabs 01/06/16 02/11/25 History aspirin 81 mg tablet,delayed 81 mg PO QAM 02/11/25 02/11/25 History release cholecalciferol (vitamin D3) 50 50 mcg PO QAM 02/11/25 02/11/25 History mcg (2,000 unit) capsule duloxetine 30 mg capsule,delayed 60 mg PO QAM 02/11/25 02/11/25 History release famotidine 20 mg tablet 20 mg PO HS 02/11/25 02/11/25 History fluticasone fur. 100 mcg-umeclid 1 inh inhalation QAM 02/11/25 02/11/25 History 62.5 mcg-vilant 25 mcg inhalat.powder (Trelegy Ellipta) naproxen 500 mg tablet 500 mg PO BID 02/11/25 02/11/25 History pregabalin 150 mg capsule 150 mg PO TID 02/11/25 02/11/25 History Patient History Medical History (Updated 02/11/25 @ 17:47 by Vishal Venegas) Vision loss, right eye Hypertension Dyslipidemia Coronary artery disease COPD (chronic obstructive pulmonary disease) Surgical History (Updated 02/11/25 @ 11:13 by Vishal Venegas) Hx of cholecystectomy H/O hernia repair Social History (System 12/17/19 @ 10:07 by La Figueroa) Smoking Status: Never smoker Second Hand Exposure: Yes; Do You Dip or Chew Tobacco: No; Tobacco Cessation Education Requested by Patient: No Hx Alcohol Use: Yes Alcohol type: beer Hx Substance Use: No Preferred Language: Belgian Communication Ability: Effective Communication Ability Comment: dropped out of school in 2nd grade can read and write some Creche Attendant Required: No Beliefs That Will Affect Care: None Current Living Situation: Spouse Other Information That Helps Us Care for You: No Feels Safe at Home: Yes Safety Concerns: Feels Safe At This Time Assistive Devices: Cane and Glasses Physical Exam Physical Exam: Sitting upright in bed, appears comfortable, appears to hear me and responds, but I cannot understand him B/L knees: skin intact. No redness or warmth. 3+ effusions, ROM limited passively 20-80 degrees, but he is comfortable through this ROM. Denies tenderness to palpation medial and lateral joint lines, suprapatellar pouch. Stable to Varus/valgus stress test at 30 degrees. Results & Data Vital Signs (Past 12 Hours) Vital Signs Temp Pulse Pulse Pulse Resp BP BP 02/11/25 15:05 14 02/11/25 15:05 02/11/25 14:55 36.3 C L 84 20 98/58 L 02/11/25 14:00 80 12 106/80 02/11/25 13:30 02/11/25 12:45 80 14 90/69 L 02/11/25 12:35 102/66 02/11/25 12:33 82 14 02/11/25 12:30 80 12 115/74 02/11/25 12:25 104/74 02/11/25 12:21 83 14 02/11/25 12:20 104/78 02/11/25 12:16 82 16 108/81 02/11/25 12:16 02/11/25 12:10 93/73 L 02/11/25 12:06 83 13 02/11/25 12:04 103/67 02/11/25 11:42 78 13 02/11/25 11:40 94/57 L 02/11/25 11:39 78 15 02/11/25 11:35 92/55 L 02/11/25 11:30 78 13 85/51 L 02/11/25 11:25 85/52 L 02/11/25 11:20 86/54 L 02/11/25 11:18 78 12 02/11/25 11:15 82/58 L 02/11/25 11:12 84 19 02/11/25 11:10 80/61 L 02/11/25 11:07 69/51 L 02/11/25 11:05 82 18 53/33 L 02/11/25 10:19 02/11/25 10:18 85 13 02/11/25 10:15 104/71 02/11/25 10:09 88 02/11/25 09:29 36.6 C 92 H 16 117/67 Pulse Ox Pulse Ox O2 Del Method O2 Del Method O2 Flow Rate O2 Flow Rate 02/11/25 15:05 95 Nasal Cannula 2 02/11/25 15:05 95 Nasal Cannula 2 02/11/25 14:55 95 Nasal Cannula 2 02/11/25 14:00 92 Nasal Cannula 2 02/11/25 13:30 Nasal Cannula 2 02/11/25 12:45 92 Nasal Cannula 2 02/11/25 12:35 02/11/25 12:33 93 Nasal Cannula 2 02/11/25 12:30 92 Nasal Cannula 2 02/11/25 12:25 02/11/25 12:21 95 Nasal Cannula 2 02/11/25 12:20 02/11/25 12:16 95 02/11/25 12:16 Room Air 02/11/25 12:10 02/11/25 12:06 96 Nasal Cannula 2 02/11/25 12:04 02/11/25 11:42 95 Nasal Cannula 2 02/11/25 11:40 02/11/25 11:39 95 Nasal Cannula 2 02/11/25 11:35 02/11/25 11:30 95 Nasal Cannula 2 02/11/25 11:25 02/11/25 11:20 02/11/25 11:18 94 Nasal Cannula 2 02/11/25 11:15 02/11/25 11:12 94 Nasal Cannula 2 02/11/25 11:10 02/11/25 11:07 02/11/25 11:05 93 Nasal Cannula 2 02/11/25 10:19 87 L Room Air 02/11/25 10:18 93 Nasal Cannula 2 02/11/25 10:15 02/11/25 10:09 02/11/25 09:29 92 Diagnostic Findings Chest X-Ray 02/11/25 09:48 XR chest 1V portable CLINICAL HISTORY: Arthgralgias COMPARISON STUDY: 01/06/2016 FINDINGS: Stable CABG. There is mild cardiomegaly without pulmonary vascular congestion. No consolidation or pleural effusion. No pneumothorax. IMPRESSION: No acute findings. ACT 112: Negative or not required by law. Electronically signed by: Zak Donnelly M.D. 02/11/2025 10:35 AM Knee X-Ray 02/11/25 09:48 XR knee RT 1 or 2V routine CLINICAL HISTORY: Bilat knee pain COMPARISON: None FINDINGS: There is moderate osteoarthritis. There are atherosclerotic calcifications. There is a moderate joint effusion. No fracture or dislocation seen. IMPRESSION: No fracture seen. ACT 112: Negative or not required by law. Electronically signed by: Zak Donnelly M.D. 02/11/2025 10:36 AM Knee X-Ray 02/11/25 09:48 XR knee LT 1 or 2V routine CLINICAL HISTORY: Bilat knee pain COMPARISON: None FINDINGS: There is moderate osteoarthritis. There are atherosclerotic calcifications. There is a moderate joint effusion. No fracture or dislocation seen. IMPRESSION: No fracture seen. ACT 112: Negative or not required by law. Electronically signed by: Zak Donnelly M.D. 02/11/2025 10:37 AM Shoulder X-Ray 02/11/25 09:48 XR shoulder LT min 2V routine CLINICAL HISTORY: Bilat shoulder pain COMPARISON: None FINDINGS: There are moderate degenerative changes. No acute fracture or dislocation. IMPRESSION: No fracture seen. ACT 112: Negative or not required by law. Electronically signed by: Zak Donnelly M.D. 02/11/2025 10:36 AM Shoulder X-Ray 02/11/25 09:48 XR shoulder RT min 2V routine CLINICAL HISTORY: Bilat shoulder pain COMPARISON: None FINDINGS: There are moderate degenerative changes. No fracture or dislocation seen.
[2025-02-11] MEDS: ALBUT/IPRATROP 3MG/0.5MG NEB 3 ML VIAL ONE (18:22)
[2025-02-11] MEDS: ALBUT/IPRATROP 3MG/0.5MG NEB 3 ML VIAL NEB SCH (18:22)
[2025-02-11] MEDS: DOXYCYCLINE HYCLATE 100 MG CAP PO SCH (21:42)
[2025-02-11] MEDS: ATORVASTATIN 40 MG TAB PO SCH (21:43)
[2025-02-11] MEDS: FAMOTIDINE 20 MG TAB PO SCH (21:46)
[2025-02-11] MEDS: DOCUSATE SODIUM 100 MG CAP PO SCH (21:46)
[2025-02-12] MEDS: methylPREDNISolone 4 MG TAB PO SCH ×2 (06:25→20:12)
[2025-02-12 07:43] LABS: Hematocrit (blood only) 42.1 % (42.0-52.0); Hemoglobin 13.8 g/dl (14.0-18.0); Mean Corpuscular Hemoglobin 32.4 pg (25.0-34.0); Mean Corpuscular Volume 98.8 fL (80.0-100.0); Platelet Count 117 K/uL (130-400); RDW Standard Deviation 46.1 fL (36.4-46.3); Red Blood Count 4.26 M/uL (4.70-6.10); White Blood Count 8.09 K/ul (4.8-10.8)
[2025-02-12 08:03] LABS: Anion Gap 8.0 (3-11); Blood Urea Nitrogen 49.0 mg/dl (6-23); Calcium 9.0 mg/dl (8.6-10.3); Carbon Dioxide 24.0 mmol/L (21-32); Chloride 108.0 mmol/L (98-107); Creatinine Clr Calc Pharmacy 33.3 ml/min; Glucose 156.0 mg/dl (70-99(Fasting)); Potassium 4.7 mmol/L (3.5-5.1); Sodium 140.0 mmol/L (136-145)
[2025-02-12] MEDS ORDERED: NON-FORMULARY MEDICATION (Fluticasone-Umeclidin-Vilanter [Trelegy Ellipta] 100-62.5-25 mcg INH SCH (09:00)
[2025-02-12] MEDS: CHOLECALCIFEROL 25 MCG (1000 UNITS) TAB PO SCH (09:13)
[2025-02-12] MEDS: ASPIRIN 81 MG ECTAB PO SCH (09:14)
[2025-02-12] MEDS: UMECLIDINIUM/VILANTEROL 62.5/25MCG 7 PUFFS/INHALER INH SCH (09:15)
[2025-02-12] MEDS: FLUTICASONE FUROATE 100MCG 14 PUFFS/INHALER INH SCH (09:15)
[2025-02-12] MEDS ORDERED: ALBUT/IPRATROP 3MG/0.5MG NEB 3 ML VIAL NEB PRN (10:48)
[2025-02-12 10:57] LABS: Appearance Urine Clear (Clear); Bacteria Urine Automated None Seen (None Seen); Epithelial Cell Urine Auto 0-2 /hpf (0-2); Glucose Urine UA Trace (Negative); RBC Urine Automated 0-2 /hpf (0-2); WBC Urine Automated 0-5 /hpf (0-5)
[2025-02-12] MEDS: SODIUM CHLORIDE 0.9% 1,000 ML IV ONE (13:11)
--- NOTE | 2025-02-12 15:07 | Hospitalist Progress Note ---
Date of Service February 12, 2025 Assessment & Plan (1) Bilateral knee pain: (2) Positive Lyme disease serology: (3) Hypoxemia: (4) Acute hypotension: (5) Osteoarthritis: Plan: Patient is 89 year old male with PMH HTN, dyslipidemia, CAD s/p CABG in 1999, COPD, GERD, anxiety, depression, carotid stenosis, RLS, OA, presented to ER with c/o bilateral knee pain and bilateral shoulder pain uncontrolled with prior outpatient treatments by ortho and pain management. Tricompartment osteoarthritis of both knees Ambulatory dysfunction Right shoulder arthritis --Knee imaging studies suggestive of moderate osteoarthritis, moderate joint effusion, no fractures --Right shoulder x-ray:moderate degenerative changes. No acute fracture or dislocation. Appreciate orthopedics input Continue Medrol Dosepak Fall precautions Weightbearing as tolerated with walker, max assist Appreciate orthopedics input Will benefit from rehab placement Needs follow-up with orthopedics on discharge Lyme screen positive. Lyme IgM negative, Lyme IgG positive Anaplasma and babesia smear unremarkable. babesia PCR, anaplasma PCR pending Empirically started on doxycycline Restless leg syndrome Continue home ropinirole, Lyrica SILVIA on CKD III BUN: 46, Cr: 1.5. Cr was 1.1 on 01/06/25 and 2.5 on 12/09/24. Prior baseline 1.2. Hold NSAIDs Hold lisinopril Gentle IV fluids Monitor renal function Avoid nephrotoxic agents as able Hypoxia H/O COPD Suspected ZOHAIB likely iso opioid stacking in ED Continue home inhalers Wean off of supplemental oxygen as able May need sleep study or as outpatient Will obtain nocturnal oximetry study CAD HTN Dyslipidemia H/O CABG 1999 Continue aspirin and statin hold lisinopril as blood pressure low on presentation, SILVIA DVT Px Heparin SQ CODE STATUS DNI DNR Disposition PT OT prior to discharge Admission and Anticipated Discharge Date Admission Date: February 11, 2025 Subjective Patient is seen and examined at bedside States having bilateral knee pain, right shoulder pain Family at bedside Also reported restless leg to RN Unsteady with gait noted Denies any chest pain, dyspnea, vomiting, abdominal pain Review of Systems Review of Systems: All systems reviewed & are unremarkable except as noted in Subjective Physical Exam Physical Exam: Physical Exam: Vitals signs as noted above General Appearance:Moderately built and nourished, no apparent distress Head: normocephalic, Atraumatic Eyes: normal inspection, EOMI, Neck: supple, Trachea midline Respiratory/Chest: Decreased breath sounds, CTA, No accessory muscle use Cardiovascular: S1, S2, +murmur Abdomen/GI:Soft, Non tender, Bowel sounds present Extremities/Musculoskeletal:normal inspection, Knee effusion, decreased ROM, no edema Neurologic/Psych:AAOX3, grossly no focal neurological deficits Skin: normal color, warm Results & Data Results & Data Vital Signs (Past 12 Hours) Vital Signs Temp Pulse Pulse Resp BP Pulse Ox O2 Del Method 02/12/25 11:32 Nasal Cannula 02/12/25 11:18 36.4 C L 88 19 111/66 90 Nasal Cannula 02/12/25 10:48 93 Nasal Cannula 02/12/25 08:26 Nasal Cannula 02/12/25 07:54 36.4 C L 76 18 142/80 H 95 Nasal Cannula 02/12/25 07:20 78 16 Nasal Cannula 02/12/25 05:12 83 02/12/25 04:25 36.4 C L 78 18 124/74 95 Nasal Cannula O2 Flow Rate 02/12/25 11:32 1 02/12/25 11:18 1.0 02/12/25 10:48 1 02/12/25 08:26 2 02/12/25 07:54 2.0 02/12/25 07:20 02/12/25 05:12 02/12/25 04:25 2 Laboratory Results Short CBC 02/12/25 Range/Units 07:09 WBC 8.09 (4.8-10.8) K/ul Hgb 13.8 L (14.0-18.0) g/dl Hct 42.1 (42.0-52.0) % Plt Count 117 L (130-400) K/uL BMP 02/12/25 07:09 Sodium 140 Potassium 4.7 Chloride 108 H Carbon Dioxide 24 BUN 49 H Creatinine 1.49 H Glucose 156 H Calcium 9.0 Urine 02/12/25 Range/Units 09:58 Urine Color Yellow Urine Appearance Clear (Clear) Urine pH 5.0 (4.5-7.5) Ur Specific [place] 1.028 (1.000-1.030) Urine Protein Trace H (Negative) Urine Glucose (UA) Trace H (Negative)
[2025-02-12] MEDS: clonazePAM 0.5 MG TAB PO ONE (16:05)
[2025-02-12] MEDS: HEPARIN SOD 5,000 UNIT/0.5 ML VIAL SQ SCH (20:11)
[2025-02-12 23:52] VITALS: RESP 18
[2025-02-13] MEDS: methylPREDNISolone 4 MG TAB PO SCH (07:02)
[2025-02-13 08:24] LABS: Hematocrit (blood only) 38.4 % (42.0-52.0); Hemoglobin 13.1 g/dl (14.0-18.0); Mean Corpuscular Hemoglobin 33.5 pg (25.0-34.0); Mean Corpuscular Volume 98.2 fL (80.0-100.0); Platelet Count 113 K/uL (130-400); RDW Standard Deviation 44.8 fL (36.4-46.3); Red Blood Count 3.91 M/uL (4.70-6.10); White Blood Count 8.31 K/ul (4.8-10.8)
[2025-02-13 08:59] LABS: Anion Gap 6.0 (3-11); Blood Urea Nitrogen 42.0 mg/dl (6-23); Calcium 9.2 mg/dl (8.6-10.3); Carbon Dioxide 25.0 mmol/L (21-32); Chloride 108.0 mmol/L (98-107); Creatinine Clr Calc Pharmacy 44.5 ml/min; Glucose 134.0 mg/dl (70-99(Fasting)); Magnesium 1.9 mg/dl (1.7-2.4); Potassium 4.8 mmol/L (3.5-5.1); Sodium 139.0 mmol/L (136-145)
[2025-02-13 11:20] VITALS: TEMP 97.5; O2SAT 94
--- NOTE | 2025-02-13 13:05 | Hospitalist Progress Note ---
Date of Service February 13, 2025 Assessment & Plan (1) Bilateral knee pain: (2) Positive Lyme disease serology: (3) Hypoxemia: (4) Acute hypotension: (5) Osteoarthritis: Plan: Patient is 89 year old male with PMH HTN, dyslipidemia, CAD s/p CABG in 1999, COPD, GERD, anxiety, depression, carotid stenosis, RLS, OA, presented to ER with c/o bilateral knee pain and bilateral shoulder pain uncontrolled with prior outpatient treatments by ortho and pain management. Tricompartment osteoarthritis of both knees Ambulatory dysfunction Right shoulder arthritis --Knee imaging studies suggestive of moderate osteoarthritis, moderate joint effusion, no fractures --Right shoulder x-ray:moderate degenerative changes. No acute fracture or dislocation. Appreciate orthopedics input Continue Medrol Dosepak Fall precautions Weightbearing as tolerated with walker, max assist Appreciate orthopedics input Will benefit from rehab placement. Patient currently not interested Needs follow-up with orthopedics on discharge Will obtain PT OT eval prior to discharge Lyme screen positive. Lyme IgM negative, Lyme IgG positive Anaplasma and babesia smear unremarkable. babesia PCR, anaplasma PCR pending Empirically started on doxycycline Restless leg syndrome Continue home ropinirole, Lyrica SILVIA on CKD III BUN: 46, Cr: 1.5. Cr was 1.1 on 01/06/25 and 2.5 on 12/09/24. Prior baseline 1.2. Hold NSAIDs Received gentle IV fluids Monitor renal function Avoid nephrotoxic agents as able Renal function back to baseline Hypoxia H/O COPD Suspected ZOHAIB likely iso opioid stacking in ED Continue home inhalers Weaned off of supplemental oxygen Nocturnal oximetry study: No significant hypoxia Recommend to get sleep study as outpatient CAD HTN Dyslipidemia H/O CABG 1999 Continue aspirin and statin Resume lisinopril likely tomorrow DVT Px Heparin SQ CODE STATUS DNI DNR Disposition PT OT prior to discharge Admission and Anticipated Discharge Date Admission Date: February 11, 2025 Subjective Patient is seen and examined at bedside States feeling a lot better today Knee pain, shoulder pain better but reports that it gets worse at night Was able to ambulate with minimal to no support Family at bedside during my encounter Patient currently not interested in rehab placement Denies any chest pain, dyspnea, vomiting, abdominal pain Review of Systems Review of Systems: All systems reviewed & are unremarkable except as noted in Subjective Physical Exam Physical Exam: Physical Exam: Vitals signs as noted above General Appearance:Moderately built and nourished, no apparent distress Head: normocephalic, Atraumatic Eyes: normal inspection, EOMI, Neck: supple, Trachea midline Respiratory/Chest: Decreased breath sounds, CTA, No accessory muscle use Cardiovascular: S1, S2, +murmur Abdomen/GI:Soft, Non tender, Bowel sounds present Extremities/Musculoskeletal:normal inspection, Knee effusion, decreased ROM, no edema Neurologic/Psych:AAOX3, grossly no focal neurological deficits Skin: normal color, warm Results & Data Results & Data Vital Signs (Past 12 Hours) Vital Signs Temp Pulse Pulse Pulse Resp BP BP 02/13/25 11:20 36.4 C L 76 18 163/86 H 02/13/25 08:01 37.0 C 77 18 149/87 H 02/13/25 06:01 78 02/13/25 04:21 36.4 C L 74 18 139/62 02/13/25 02:39 76 Pulse Ox Pulse Ox O2 Del Method O2 Del Method 02/13/25 11:20 94 Room Air 02/13/25 08:01 96 Room Air 02/13/25 06:01 02/13/25 04:21 94 Room Air 02/13/25 02:39 93 Room Air Laboratory Results Short CBC 02/13/25 Range/Units 07:16 WBC 8.31 (4.8-10.8) K/ul Hgb 13.1 L (14.0-18.0) g/dl Hct 38.4 L (42.0-52.0) % Plt Count 113 L (130-400) K/uL BMP 02/13/25 07:16 Sodium 139 Potassium 4.8 Chloride 108 H Carbon Dioxide 25 BUN 42 H Creatinine 1.12 D Glucose 134 H Calcium 9.2
--- NOTE | 2025-02-13 14:06 | Discharge Summary ---
Date of Service February 13, 2025 Admission HPI Per Admitting Provider Patient is 89 year old male with PMH HTN, dyslipidemia, CAD s/p CABG in 1999, COPD, GERD, anxiety, depression, carotid stenosis, RLS, OA, presented to ER with c/o bilateral knee pain and bilateral shoulder pain. History obtained from patient at bedside and outpatient chart review as patient currently somnolent after receiving IV narcotics in ER. Per outpatient chart review patient with chronic bilateral knee pain left greater than right. Prior x-rays consistent with advanced bilateral osteoarthritis, predominantly affecting medial compartments. Patient has followed with Dr Sarah pain management in [place] and had limited relief with radiofrequency ablation and Euflexxa injections and has also been seen by ortho. Also with bilateral shoulder pain ongoing for years. reports patient's knee pain is uncontrolled. She reports chronic edema of knees. Unsure if has had erythema. reports previously on pain medication but was tapered off "awhile ago". She is unaware of any tick bites. No prior history Lyme disease. Denies fever/chills, N/V/D/C, reported CP or SOB. Further ROS unobtaianable at this time secondary to patients status. Outpatient 09/21/24 bilateral knee xray: 1. No acute bilateral knee osseous finding. 2. [id number] bilateral medial compartment degenerative changes. 3. Given the bilateral patella femoral joint space narrowing, sclerosis, scattered chondrocalcinosis, a component of chronic CPPD arthropathy is not excluded. Admission Exam Per Admitting Provider GENERAL APPEARANCE: AxOx0, requires physical and loud verbal stimuli to awaken HEENT: NC, AT. MMM. left eye with clouding (chronic) right eye with PERRLA, sluggish NECK: Supple without lymphadenopathy. No stiffness or restricted ROM. HEART: Normal rate and regular rhythm, normal S1/S1, no m/r/g LUNGS: CTAB, moving air well. No crackles or wheezes are heard. ABDOMEN: Soft, nondistended with good bowel sounds heard. EXTREMITIES: Without cyanosis, clubbing or edema. Right knee with more medial swelling than left, no warm erythema noted, no lesions noted. NEUROLOGICAL: Grossly nonfocal. moving all 4 extremities. CN not formally tested but appear grossly intact. well lethargic 2/2 analgesia Skin: Warm and dry without any rash. Principal Diagnosis Tricompartment osteoarthritis of both knees Ambulatory dysfunction Right shoulder arthritis Thrombocytopenia Acute kidney injury on CKD stage III Discharge Data Allergies Allergy/AdvReac Type Severity Reaction Status Date / Time No Known Allergies Allergy Unverified 12/17/19 10:07 Consultations 02/11/25 12:31 ED Decision to Admit Stat 02/11/25 15:05 Consult Orthopedic Surgery Routine Procedures Performed Laboratory Results WBC 8.31 K/ul (4.8-10.8) 02/13/25 07:16 RBC 3.91 M/uL (4.70-6.10) L 02/13/25 07:16 Hgb 13.1 g/dl (14.0-18.0) L 02/13/25 07:16 Hct 38.4 % (42.0-52.0) L 02/13/25 07:16 MCV 98.2 fL (80.0-100.0) 02/13/25 07:16 MCH 33.5 pg (25.0-34.0) 02/13/25 07:16 MCHC 34.1 g/dL (32.0-36.0) 02/13/25 07:16 RDW Std Deviation 44.8 fL (36.4-46.3) 02/13/25 07:16 RDW Coeff of Liseth 12.5 % (11.5-14.5) 02/13/25 07:16 Plt Count 113 K/uL (130-400) L 02/13/25 07:16 MPV 11.9 fL (9.4-12.4) 02/13/25 07:16 Immature Gran % (Auto) 0.6 % 02/11/25 10:05 Neut % (Auto) 68.5 % 02/11/25 10:05 Lymph % (Auto) 16.0 % 02/11/25 10:05 Crane % (Auto) 12.0 % 02/11/25 10:05 Eos % (Auto) 2.4 % 02/11/25 10:05 Baso % (Auto) 0.5 % 02/11/25 10:05 Neut # (Auto) 5.84 K/uL (1.40-6.50) 02/11/25 10:05 Lymph # (Auto) 1.36 K/uL (1.20-3.40) 02/11/25 10:05 Crane # (Auto) 1.02 K/uL (0.11-0.59) H 02/11/25 10:05 Eos # (Auto) 0.20 K/uL (0.00-0.50) 02/11/25 10:05 Baso # (Auto) 0.04 K/uL (0.00-0.20) 02/11/25 10:05 Immature Gran # (Auto) 0.05 K/uL (0.01-0.20) 02/11/25 10:05 ESR 6 mm/hr (0-20) 02/11/25 10:05 PT 11.0 Seconds (9.0-12.0) 02/11/25 10:05 INR 1.0 (0.9-1.1) 02/11/25 10:05 Sodium 139 mmol/L (136-145) 02/13/25 07:16 Potassium 4.8 mmol/L (3.5-5.1) 02/13/25 07:16 Chloride 108 mmol/L (98-107) H 02/13/25 07:16 Carbon Dioxide 25 mmol/L (21-32) 02/13/25 07:16 Anion Gap 6 (3-11) 02/13/25 07:16 BUN 42 mg/dl (6-23) H 02/13/25 07:16 Creatinine 1.12 mg/dl (0.6-1.4) D 02/13/25 07:16 Est Cr Clr Drug Dosing 44.5 ml/min 02/13/25 07:16 eGFR 63.58 02/13/25 07:16 BUN/Creatinine Ratio 37.5 (10-20) H 02/13/25 07:16 Glucose 134 mg/dl (70-99(Fasting)) H 02/13/25 07:16 Lactate 1.2 mmol/L (0.4-2.0) 02/11/25 10:05 Uric Acid 9.0 mg/dl (2.6-7.2) H 02/11/25 10:05 Calcium 9.2 mg/dl (8.6-10.3) 02/13/25 07:16 Magnesium 1.9 mg/dl (1.7-2.4) 02/13/25 07:16 Total Bilirubin 0.6 mg/dl (0.2-1.0) 02/11/25 10:05 AST 30 U/L (13-39) 02/11/25 10:05 ALT 21 U/L (7-52) 02/11/25 10:05 Alkaline Phosphatase 77 U/L (34-104) 02/11/25 10:05 C-Reactive Protein < 0.50 mg/dl (0-0.5) 02/11/25 10:05 Total Protein 6.9 gm/dl (6.0-8.3) 02/11/25 10:05 Albumin 4.4 gm/dl (3.4-5.0) 02/11/25 10:05 Globulin 2.5 gm/dl (2.5-4.0) 02/11/25 10:05 Albumin/Globulin Ratio 1.8 (0.9-2) 02/11/25 10:05 Procalcitonin 0.06 ng/ml (0-0.5) 02/11/25 10:05 Urine Color Yellow 02/12/25 09:58 Urine Appearance Clear (Clear) 02/12/25 09:58 Urine pH 5.0 (4.5-7.5) 02/12/25 09:58 Ur Specific [place] 1.028 (1.000-1.030) 02/12/25 09:58 Urine Protein Trace (Negative) H 02/12/25 09:58 Urine Glucose (UA) Trace (Negative) H 02/12/25 09:58 Urine Ketones Trace (Negative) H 02/12/25 09:58 Urine Blood Negative (Negative) 02/12/25 09:58 Urine Nitrite Negative (Negative) 02/12/25 09:58 Urine Bilirubin Negative (Negative) 02/12/25 09:58 Urine Urobilinogen Negative (Negative) 02/12/25 09:58 Ur Leukocyte Esterase Negative (Negative) 02/12/25 09:58 Urine WBC (Auto) 0-5 /hpf (0-5) 02/12/25 09:58 Urine RBC (Auto) 0-2 /hpf (0-2) 02/12/25 09:58 U Hyaline Cast (Auto) 11-20 /lpf (0-2) H 02/12/25 09:58 U Epithel Cells (Auto) 0-2 /hpf (0-2) 02/12/25 09:58 Urine Bacteria (Auto) None Seen (None Seen) 02/12/25 09:58 Urine Mucus Present (None Prsent) A 02/12/25 09:58 Urine Comment 02/12/25 09:58 Anaplasma Smear See Comment 02/11/25 10:05 Babesia Smear See Comment 02/11/25 10:05 Lyme Disease Screen Positive (Negative) H 02/11/25 10:05 Lyme Tier 2 IgG Confirm Positive (Negative) H 02/11/25 10:05 Lyme Tier 2 IgM Confirm Negative (Negative) 02/11/25 10:05 Impressions Chest X-Ray 02/11/25 09:48 XR chest 1V portable CLINICAL HISTORY: Arthgralgias COMPARISON STUDY: 01/06/2016 FINDINGS: Stable CABG. There is mild cardiomegaly without pulmonary vascular congestion. No consolidation or pleural effusion. No pneumothorax. IMPRESSION: No acute findings. ACT 112: Negative or not required by law. Electronically signed by: Zak Donnelly M.D. 02/11/2025 10:35 AM Knee X-Ray 02/11/25 09:48 XR knee LT 1 or 2V routine CLINICAL HISTORY: Bilat knee pain COMPARISON: None FINDINGS: There is moderate osteoarthritis. There are atherosclerotic calcifications. There is a moderate joint effusion. No fracture or dislocation seen. IMPRESSION: No fracture seen. ACT 112: Negative or not required by law. Electronically signed by: Zak Donnelly M.D. 02/11/2025 10:37 AM Shoulder X-Ray 02/11/25 09:48 XR shoulder RT min 2V routine CLINICAL HISTORY: Bilat shoulder pain COMPARISON: None FINDINGS: There are moderate degenerative changes. No fracture or dislocation seen. IMPRESSION: No fracture seen. ACT 112: Negative or not required by law. Electronically signed by: Zak Donnelly M.D. 02/11/2025 10:37 AM Hospital Course (1) Bilateral knee pain: (2) Positive Lyme disease serology: (3) Hypoxemia: (4) Acute hypotension: (5) Osteoarthritis: Patient is 89 year old male with PMH HTN, dyslipidemia, CAD s/p CABG in 1999, COPD, GERD, anxiety, depression, carotid stenosis, RLS, OA, presented to ER with c/o bilateral knee pain and bilateral shoulder pain uncontrolled with prior outpatient treatments by ortho and pain management. Tricompartment osteoarthritis of both knees Ambulatory dysfunction Right shoulder arthritis --Knee imaging studies suggestive of moderate osteoarthritis, moderate joint effusion, no fractures --Right shoulder x-ray:moderate degenerative changes. No acute fracture or dislocation. Appreciate orthopedics input Continue Medrol Dosepak Fall precautions Weightbearing as tolerated with walker, max assist Appreciate orthopedics input Will benefit from rehab placement. Patient currently not interested Needs follow-up with orthopedics on discharge Will obtain PT OT eval prior to discharge Lyme screen positive. Lyme IgM negative, Lyme IgG positive Anaplasma and babesia smear unremarkable. babesia PCR, anaplasma PCR pending Empirically started on doxycycline Restless leg syndrome Continue home ropinirole, Lyrica SILVIA on CKD III BUN: 46, Cr: 1.5. Cr was 1.1 on 01/06/25 and 2.5 on 12/09/24. Prior baseline 1.2. Hold NSAIDs Received gentle IV fluids Monitor renal function Avoid nephrotoxic agents as able Renal function back to baseline Hypoxia H/O COPD Suspected ZOHAIB likely iso opioid stacking in ED Continue home inhalers Weaned off of supplemental oxygen Nocturnal oximetry study: No significant hypoxia Recommend to get sleep study as outpatient CAD HTN Dyslipidemia H/O CABG 1999 Continue aspirin and statin Resume lisinopril likely tomorrow DVT Px Heparin SQ CODE STATUS DNI DNR Disposition PT OT prior to discharge Total Time Total Time Spent Total Time Spent (In Minutes): 48 minutes Discharge Plan Discharge Items Patient Disposition: Home - Home Health Services Reason For Visit: KNEE PAIN Discharge Diagnosis: Tricompartment osteoarthritis of both knees Ambulatory dysfunction Right shoulder arthritis Thrombocytopenia Acute kidney injury on CKD stage III Condition on Discharge: Fair Activity: Per Instructions section Exercise/Sports: Gradually increase as tolerated Non-emergency contact: Primary Care Provider and Surgeon Call non-emergency contact if: you have any medication questions, your symptoms worsen, your pain is concerning for you and you have a fever Follow-up/Referrals: Olya Figueroa PA-C [Primary Care Provider] - Diet: Heart Healthy Addtl Attending Provider Instructions: -Follow-up with your primary care physician in [place]a Figueroa PA-C in 1 week -Follow-up with your orthopedic surgeon in 1 to 2 weeks as advised --Your final blood cultures are pending at the time of discharge. Follow-up with your physician for results.- --Complete the Medrol Dosepak (methylprednisolone) tapering course as recommended --Complete the doxycycline course as prescribed --Get sleep study as outpatient to rule out sleep apnea Medrol Dosepak tapering course Start taking methylprednisolone 4 mg 3 times a day for 2 days, then take twice a day for 2 days and then take once a day for 2 days and stop Pending Studies at Discharge: Yes Studies:: Blood cultures Stand-Alone Forms: [facility], Smoking Cessation Medications and DC Order Prescriptions: New doxycycline hyclate 100 mg Capsule 100 mg PO BID Qty: 16 0RF methylprednisolone 4 mg Tablet 4 mg PO UD Qty: 12 0RF Rx Instructions: Start taking methylprednisolone 4 mg 3 times a day for 2 days, then take twice a day for 2 days and then take once a day for 2 days and stop Continued atorvastatin 40 mg Tablet 40 mg PO HS Qty: 0 lisinopril 20 mg Tablet 20 mg PO QAM Qty: 0 ropinirole 4 mg Tablet 4 mg PO HS Qty: 0 Rx Instructions: administer 1-3 hours before bedtime aspirin 81 mg Tablet,Delayed Release (Dr/Ec) 81 mg PO QAM duloxetine 30 mg capsule,delayed release(DR/EC) 60 mg PO QAM pregabalin 150 mg capsule 150 mg PO TID cholecalciferol (vitamin D3) 50 mcg (2,000 unit) capsule 50 mcg PO QAM famotidine 20 mg tablet 20 mg PO HS Trelegy Ellipta 100-62.5-25 mcg blister with device 1 inh INHALATION QAM Discontinued naproxen 500 mg tablet 500 mg PO BID Discharge Orders: Discharge Order (Routine); Ordered 02/13/25 Ordered By: Roberto Moon Admission Data Admit Date/Time: 02/11/25 13:21 Attending Provider: Roberto Moon Admit Provider: Felicita Saravia Primary Care Provider: Olya Figueroa. Other Providers: Dheeraj Jimenez; Felicita Saravia
[2025-02-13 15:04] VITALS: BP 139/62; PULSE 88
[2025-02-14] MEDS ORDERED: methylPREDNISolone 4 MG TAB PO SCH (07:00)
[2025-02-15] MEDS ORDERED: methylPREDNISolone 4 MG TAB PO SCH (07:00)
[2025-02-16] MEDS ORDERED: methylPREDNISolone 4 MG TAB PO SCH (07:00)
== END 2025-02-13 15:53 | disposition home health service (06) | DRG 554 ==
LOC: ED 09:28 → 2S 13:21 → SUATTDRO 13:21 → 2S 14:30